=== PATIENT | male | born 1960 | race Caucasian/White ===

== ENCOUNTER 2016-07-13 16:03 | Emergency (ER) | payer OTHER ==
[~2016-07-13] VITALS: Ht 167.6 cm; Wt 89.8 kg
[2016-07-13 16:20] VITALS: BP 147/72; PULSE 84; RESP 16; TEMP 98.8; O2SAT 97
[2016-07-13] MEDS ORDERED: MULT-125 PO (17:12)
[2016-07-13] MEDS ORDERED: ASPI81CH CHEW (17:12)
[2016-07-13] MEDS ORDERED: CANA100T PO (17:12)
[2016-07-13] MEDS ORDERED: LISI10TA PO (17:12)
[2016-07-13] MEDS ORDERED: METF500T PO (17:12)
[2016-07-13] MEDS ORDERED: PREV15CA15 PO (17:12)
[2016-07-13] MEDS ORDERED: MECLIZINE HCL 25 MG TAB PO ONE (17:15)
[2016-07-13] MEDS ORDERED: ONDANSETRON ODT 4 MG TAB PO/SL ONE (17:15)
--- NOTE | 2016-07-13 17:17 | PD ---
HPI Chief Complaint: ENT Complaint Time Seen by Provider: 17:11 Travel History International Travel<30 days: No Contact w/Intl Traveler<30days: No Traveled to known affect area: No History of Present Illness HPI Patient is a 56-year-old male with history of chronic sinus problems, eustachian tube dysfunction, DM, CAD and HTN presenting with left ear discomfort , reduced hearing and vertiginous symptoms with nausea for 1 week. He states that he's had vertigo in the past and this is similar. He denies presyncope or syncope, chest pain, palpitations, shortness of breath. He states that this is worse when he bends over or when he gets up from sitting rapidly. States he has a little unsteady on his feet but denies ataxia or dysarthria. Denies any confusion or weakness or paresthesias in his extremities. Denies any fevers or otorrhea. He has some nausea with the vertigo symptoms but denies vomiting, diarrhea, constipation, abdominal pain. States his PCP put him on oral antibiotics one week ago which patient has finished without improvement. He is also taking an antihistamine and Flonase which has not helped. [facility] Past Medical History Cardiovascular Problems: Yes (htn on meds, [place] x 1) Diabetes: Yes (type 2) Social History Tobacco Use: No Allergies-Medications (Allergen,Severity, Reaction): Coded Allergies: No Known Allergies (Unverified , 07/13/16) Reported Meds & Prescriptions Reported Meds & Active Scripts Active Zofran Odt (Ondansetron Odt) 4 Mg Tab 4 Mg SL Q12HR PRN Meclizine (Meclizine HCl) 25 Mg Tab 25-50 Mg PO BID PRN Reported Centrum Men (Multiple Vitamins-Minerals) 1 Tab Tab 1 Tab PO DAILY Aspirin 81 Mg Chew 81 Mg CHEW DAILY Prevacid (Lansoprazole) 15 Mg Capdr 15 Mg PO DAILY Lisinopril-Hctz 10-12.5 Mg Tab 1 Tab PO DAILY Metformin (Metformin HCl) 500 Mg Tab 500 Mg PO BIDPC With meals Invokana (Canagliflozin) 100 Mg Tab 100 Mg PO DAILY Take before 1st meal of day. Review of Systems Except as stated in HPI: all other systems reviewed are Neg Physical Exam Narrative GENERAL: Well-developed and well-nourished adult male in no acute distress. SKIN: Warm and dry. Good turgor without tenting. HEAD: Normocephalic and atraumatic. EYES: PERRL bilaterally, 5mm. EOMI bilaterally. No injection or icterus present. No proptosis. Lids without edema or erythema. ENT: Bilateral ear canals are non-edematous/non-erythematous without otorrhea. Bilateral TMs are dull and slightly retracted, left greater than right. No evidence of perforation, air-fluid level or infection including erythema. Nasal mucosa erythematous and edematous without discharge, septum intact and midline. Negative bilateral mastoid tenderness. Thao-Hallpike on the left and right reproduces the vertiginous symptoms with nausea without nystagmus. Buccal mucosa pink and moist. Oropharynx free of erythema, tonsillar hypertrophy, masses, swelling, asymmetry and exudates. Uvula midline and airway patent. NECK: Supple, no meningeal signs. Trachea midline, no JVD. No cervical or facial lymphadenopathy. Negative bilateral carotid bruits. CARDIOVASCULAR: Regular rate and rhythm without murmurs, rubs, clicks or gallops. Radial and posterior tibial pulses 2+ bilaterally. No pedal edema. RESPIRATORY: Clear to auscultation bilaterally with symmetrical rise and fall, no distress or use of accessory muscles. GASTROINTESTINAL: Non-tender, non-distended. Normal bowel sounds all 4 quadrants. No masses or organomegaly present. MUSCULOSKELETAL: No gait disturbances. Patient freely moving all four extremities spontaneously. Extremities without clubbing, cyanosis, or edema. No obvious deformities. NEUROLOGIC: CN II-XII grossly intact. Awake and alert. Negative Romberg and pronator drift. Rousseau and accurate finger to nose to finger testing bilaterally. Strength 5/5 bilateral shoulder flexion, shoulder extension, shoulder abduction, shoulder adduction, elbow flexion, elbow extension. Sensation intact and strength 5/5 over radial, median, and ulnar nerve distributions bilaterally.Sensation intact L2-S2 bilaterally. Strength 5/5 in hip flexion, hip extension, knee flexion, knee extension, plantar flexion, dorsiflexion bilaterally. Bilateral biceps, brachioradialis, patellar and Achilles DTRs 2+. Downgoing Babinskis bilaterally. Normal speech. PSYCHIATRIC: Appropriate mood and affect; insight and judgment normal. Data Data Last Documented VS Vital Signs Date Time Temp Pulse Resp B/P Pulse Ox O2 Delivery O2 Flow Rate FiO2 07/13/16 17:45 82 16 131/67 96 1/7/17 16:20 98.8 Orders Meclizine (Antivert) (07/13/16 17:15) Ondansetron Odt (Zofran Odt) (07/13/16 17:15) [facility] Medical Decision Making Medical Screen Exam Complete: Yes Emergency Medical Condition: Yes Differential Diagnosis Vertigo versus eustachian tube dysfunction versus chronic sinusitis versus otitis media versus otitis externa Narrative Course Patient is a 56-year-old male with a history of eustachian tube dysfunction and vertigo presenting with symptoms and physical suggestive of same. He is afebrile nontoxic appearing and has no signs of acute infection including mastoiditis. Alma-Hallpike reproduces symptoms. This patient is a history of CAD pseudoephedrine other decongestants are contraindicated but would likely be of benefit if they were able to be used. I discussed with Dr. Najera who agrees without any other symptoms, the chronicity, and normal neurologic exam no additional workup is indicated. Patient was given meclizine 50 mg and Zofran 4 mg here and a prescription for both. Recommend he follow up with an ENT on Friday and continue using the Flonase in the meantime. Patient to get some relief from the meclizine. I perform the Reynaldo maneuver with the patient for both the right and left side and he did have nystagmus with both, worse with the right. He did feel improved after this as well. Patient given prescription for meclizine and Zofran and recommended home Reynaldo maneuver and follow-up with ENT or PCP on Friday.See discharge paperwork for further instructions. The plan was discussed with the patient who acknowledged their understanding and agreement. Reinforced the follow-up with primary care is critically important. Patient instructed on emergent conditions that should prompt return to ED. Diagnosis Primary Impression: BPPV (benign paroxysmal positional vertigo) Qualified Code: H81.13 - BPPV (benign paroxysmal positional vertigo), bilateral Additional Impression: Eustachian tube dysfunction Qualified Code: H69.83 - Eustachian tube dysfunction, bilateral Patient Instructions: Benign Paroxysmal Positional Vertigo (ED), Eustachian Tube Dysfunction (GEN), General Instructions Additional Instructions: Continue home nasal steroids Recommend nasal irrigation with Neti Pot Take medications as directed Avoid rapid and sudden changes in position or posture Drink lots of fluids and stay well-hydrated Lookup Reynaldo maneuver video and perform at home as needed Follow-up with PCP or ENT on Friday Return to the ED for any acute worsening of symptoms Med/Other Pt SpecificInfo: Prescription(s) given Scripts Ondansetron Odt (Zofran Odt)4 Mg Tab4 Mg SL Q12HR PRN (Nausea/Vomiting) #12 TAB Ref 0 Prov:Amber Najera MD 07/13/16 Meclizine 25 Mg [id number] Mg PO BID PRN (VERTIGO) #15 TAB Ref 0 Prov:Amber Najera MD 07/13/16 Disposition: 01 DISCHARGE HOME Condition: Stable Reji Ybarra III Jul 13, 2016 17:17
[2016-07-13] MEDS ORDERED: MECL-62 PO (17:19)
[2016-07-13] MEDS ORDERED: ZOFR4TAB3 SL (17:19)
[2016-07-13 17:45] VITALS: BP 131/67; PULSE 82; RESP 16; O2SAT 96
== END 2016-07-13 18:28 | disposition home or self-care (01) ==
LOC: PHED 16:03 → PHEFT 18:28
DX: H81.13 Benign paroxysmal vertigo, bilateral (principal); H69.83 Other specified disorders of Eustachian tube, bilateral; I10 Essential (primary) hypertension; E11.8 Type 2 diabetes mellitus with unspecified complications
CPT/HCPCS: 95992

== ENCOUNTER 2016-08-01 20:50 | Emergency (ER) | payer OTHER ==
[~2016-08-01 20:50] MED LIST: ASPI81CH CHEW; CANA100T PO; LISI10TA PO; MECL-62 PO; METF500T PO; MULT-125 PO; PREV15CA15 PO; ZOFR4TAB3 SL
== END 2016-08-01 22:17 | disposition left against medical advice (07) ==
LOC: PHED 20:50
DX: R68.89 Other general symptoms and signs (principal)
CPT/HCPCS: 99281

== ENCOUNTER 2017-01-16 17:37 | Emergency (ER) | payer OTHER ==
[~2017-01-16] VITALS: Ht 167.6 cm; Wt 90.0 kg
[2017-01-16 17:43] VITALS: BP 134/66; PULSE 77; RESP 14; TEMP 98.5; O2SAT 97
[2017-01-16 18:15] VITALS: BP 134/66; PULSE 77; RESP 14; TEMP 98.5; O2SAT 97
--- NOTE | 2017-01-16 18:28 | PD ---
HPI Chief Complaint: Cold / Flu Symptoms Time Seen by Provider: 18:14 Travel History International Travel<30 days: No Contact w/Intl Traveler<30days: No Traveled to known affect area: No History of Present Illness HPI This 56-year-old male says he woke up around 2:00 this morning profuse sweating. He did not have any chest pain or shortness of breath. He felt generalized weakness. 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 He went home and took a cool shower and seemed to feel a little bit better. He had some dry heaves last night. He does have a history of diabetes and hypertension. He does not smoke. When he vomited it was mostly mucus that he brought up. PFSH Past Medical History Hx Anticoagulant Therapy: Yes (BABY ASA DAILY) Cardiovascular Problems: Yes High Cholesterol: Yes Diabetes: Yes Patient Takes Glucophage: No Diminished Hearing: No Hypertension: Yes Tetanus Vaccination: < 5 Years Past Surgical History Other Surgery: Yes (SINUS) Social History Alcohol Use: Yes (OCC) Tobacco Use: No Substance Use: No Allergies-Medications (Allergen,Severity, Reaction): Coded Allergies: No Known Allergies (Unverified , 01/16/17) Reported Meds & Prescriptions Reported Meds & Active Scripts Active Zofran Odt (Ondansetron Odt) 4 Mg Tab 4 Mg SL Q12HR PRN Meclizine (Meclizine HCl) 25 Mg Tab 25-50 Mg PO BID PRN Reported Centrum Men (Multiple Vitamins-Minerals) 1 Tab Tab 1 Tab PO DAILY Aspirin 81 Mg Chew 81 Mg CHEW DAILY Prevacid (Lansoprazole) 15 Mg Capdr 15 Mg PO DAILY Lisinopril-Hctz 10-12.5 Mg Tab 1 Tab PO DAILY Invokana (Canagliflozin) 100 Mg Tab 1,000 Mg PO DAILY Take before 1st meal of day. Review of Systems General / Constitutional: Positive: Chills, No: Fever Eyes: No: Diploplia, Blurred Vision HENT: No: Headaches, Vertigo Cardiovascular: No: Chest Pain or Discomfort, Palpitations Respiratory: No: Cough, Shortness of Breath Gastrointestinal: Positive: Vomiting Genitourinary: No: Frequency Musculoskeletal: Positive: Myalgias, Weakness Skin: No Rash Neurologic: Positive: Weakness Endocrine: No: Heat Intolerance Hematologic/Lymphatic: No: Easy Bruising Physical Exam Narrative GENERAL: Well-developed male SKIN: Focused skin assessment warm/dry. HEAD: Atraumatic. Normocephalic. EYES: Pupils equal and round. No scleral icterus. No injection or drainage. ENT: No nasal bleeding or discharge. Mucous membranes pink and moist. NECK: Trachea midline. No JVD. CARDIOVASCULAR: Regular rate and rhythm. No murmur appreciated. RESPIRATORY: No accessory muscle use. Clear to auscultation. Breath sounds equal bilaterally. GASTROINTESTINAL: Abdomen soft, non-tender, nondistended. Hepatic and splenic margins not palpable. MUSCULOSKELETAL: No obvious deformities. No clubbing. No cyanosis. No edema. NEUROLOGICAL: Awake and alert. No obvious cranial nerve deficits. Motor grossly within normal limits. Normal speech. PSYCHIATRIC: Appropriate mood and affect; insight and judgment normal. Data Data Last Documented VS Vital Signs Date Time Temp Pulse Resp B/P Pulse Ox O2 Delivery O2 Flow Rate FiO2 01/16/17 18:15 98.5 77 14 134/66 97 01/16/17 18:09 Room Air Orders Complete Blood Count With Diff (01/16/17 18:23) Comprehensive Metabolic Panel (01/16/17 18:23) Urinalysis - C+S If Indicated (01/16/17 18:23) Chest, Single Ap (01/16/17 18:23) Sodium Chlor 0.9% 1000 Ml Inj (Ns 1000 M (01/16/17 18:30) Sodium Chlor 0.9% 1000 Ml Inj (Ns 1000 M (01/16/17 19:00) Acetaminophen (Tylenol) (01/16/17 19:30) Labs Laboratory Tests Test 01/16/17 01/16/17 18:30 19:10 White Blood Count 7.0 TH/MM3 Red Blood Count 5.10 MIL/MM3 Hemoglobin 15.1 GM/DL Hematocrit 45.8 % Mean Corpuscular Volume 89.7 FL Mean Corpuscular Hemoglobin 29.7 PG Mean Corpuscular Hemoglobin 33.1 % Concent Red Cell Distribution Width 12.5 % Platelet Count 207 TH/MM3 Mean Platelet Volume 8.8 FL Neutrophils (%) (Auto) 63.7 % Lymphocytes (%) (Auto) 26.3 % Monocytes (%) (Auto) 6.9 % Eosinophils (%) (Auto) 2.6 % Basophils (%) (Auto) 0.5 % Neutrophils # (Auto) 4.5 TH/MM3 Lymphocytes # (Auto) 1.8 TH/MM3 Monocytes # (Auto) 0.5 TH/MM3 Eosinophils # (Auto) 0.2 TH/MM3 Basophils # (Auto) 0.0 TH/MM3 CBC Comment DIFF FINAL Differential Comment Sodium Level 143 MEQ/L Potassium Level 4.0 MEQ/L Chloride Level 106 MEQ/L Carbon Dioxide Level 27.1 MEQ/L Anion Gap 10 MEQ/L Blood Urea Nitrogen 19 MG/DL Creatinine 0.85 MG/DL Estimat Glomerular Filtration 93 ML/MIN Rate Random Glucose 151 MG/DL Calcium Level 8.9 MG/DL Total Bilirubin 0.4 MG/DL Aspartate Amino Transf 18 U/L (AST/SGOT) Alanine Aminotransferase 32 U/L (ALT/SGPT) Alkaline Phosphatase 71 U/L Total Protein 7.2 GM/DL Albumin 3.9 GM/DL Urine Color YELLOW Urine Turbidity CLEAR Urine pH 5.5 Urine Specific [place] 1.027 Urine Protein NEG mg/dL Urine Glucose (UA) NEG mg/dL Urine Ketones NEG mg/dL Urine Occult Blood NEG Urine Nitrite NEG Urine Bilirubin NEG Urine Leukocyte Esterase NEG Urine RBC 0-3 /hpf Urine Squamous Epithelial 0-5 /hpf Cells Microscopic Urinalysis Comment CULT NOT INDICATED MDM Medical Decision Making Medical Screen Exam Complete: Yes Emergency Medical Condition: Yes Medical Record Reviewed: Yes Differential Diagnosis Differential includes pneumonia, UTI, heat-related illness, dehydration Narrative Course Patient given IV fluids. His white count is normal. Chest x-ray shows small area of interstitial process. This could be related to or inhalation or a small infiltrate. Covered with antibiotics and will be released Diagnosis Primary Impression: Pneumonia Qualified Code: J18.9 - Pneumonia of left lung due to infectious organism, unspecified part of lung Scripts Amoxicillin 500 Mg Cys738 Mg PO TID #30 TAB Ref 0 Prov:Tu Bowers MD 01/16/17 Disposition: 01 DISCHARGE HOME Condition: Stable Tu Bowers MD Jan 16, 2017 18:28
[2017-01-16] MEDS ORDERED: SODIUM CHLOR 0.9% 1000 ML INJ 1,000 ML IV ONE ×2 (18:30→19:00)
[2017-01-16 18:34] LABS: AUTOMATED NEUTROPHIL # 4.5 TH/MM3 (1.8-7.7); BASOPHIL % 0.5 % (0.0-2.0); EOSINOPHIL # 0.2 TH/MM3 (0-0.4); EOSINOPHIL % 2.6 % (0.0-4.0); HEMATOCRIT 45.8 % (39.0-51.0); HEMO FLAGS DIFF FINAL; LYMPH % 26.3 % (9.0-44.0); LYMPHOCYTE # 1.8 TH/MM3 (1.0-4.8); MEAN CELL VOLUME 89.7 FL (80.0-100.0); MEAN CORPUSCULAR HEMOGLOBIN 29.7 PG (27.0-34.0); MEAN CORPUSCULAR HGB CONC 33.1 % (32.0-36.0); MONO % 6.9 % (0.0-8.0); NEUT % 63.7 % (16.0-70.0); PLATELET COUNT 207 TH/MM3 (150-450); RED CELL DISTRIBUTION WIDTH 12.5 % (11.6-17.2)
[2017-01-16 18:45] LABS: CHLORIDE 106 MEQ/L (98-107); SODIUM (NA) 143 MEQ/L (136-145)
--- NOTE | 2017-01-16 18:47 | RADRPT ---
EXAM DATE/TIME: 01/16/2017 18:36 [facility] COMPARISON: No previous studies available for comparison. INDICATIONS : Shortness of breath and cramping in extremities. MEDICAL HISTORY : Hypertension. Heart attack. SURGICAL HISTORY : None. ENCOUNTER: Initial ACUITY: 2 days PAIN SCORE: 0/10 LOCATION: Bilateral chest FINDINGS: Heart and mediastinum are unremarkable for technique. There is prominence of the perivascular marking s with crowding of the bronchovascular markings may be due to expiratory state of this radiograph, ho wever slight interstitial process is not excluded. CONCLUSION: There is prominence of the perivascular markings with crowding of the bronchovascular markings may be due to expiratory state of this radiograph, however slight interstitial process is not excluded. Spencer Beck MD on January 16, 2017 at 18:45 Board Certified Radiologist. This report was verified electronically.
[2017-01-16 18:48] LABS: ANION GAP 10 MEQ/L (5-15); BICARBONATE 27.1 MEQ/L (21.0-32.0); BLOOD UREA NITROGEN 19 MG/DL (7-18)
[2017-01-16 18:51] LABS: ALT (GPT) 32 U/L (12-78); AST (GOT) 18 U/L (15-37); GLOMERULAR FILTRATION RATE 93 ML/MIN (>89)
[2017-01-16 18:52] LABS: TOTAL BILIRUBIN ADULT 0.4 MG/DL (0.2-1.0)
[2017-01-16 18:54] LABS: ALKALINE PHOSPHATASE 71 U/L (45-117)
[2017-01-16 19:22] LABS: BLOOD, URINE NEG (NEG); GLUCOSE,URINE NEG (NEG); KETONE, URINE NEG (NEG); NITRITE,URINE NEG (NEG); PH, URINE 5.5 (5.0-8.5)
[2017-01-16 19:30] LABS: URINE COLOR YELLOW (YELLW/STRAW)
[2017-01-16] MEDS ORDERED: ACETAMINOPHEN 325 MG TAB PO ONE (19:30)
[2017-01-16 19:31] LABS: COMMENT (UR) CULT NOT INDICATED; CULTURE IF INDICATED CULT NOT INDICATED; RBC, URINE 0-3 /hpf (0-3); SQUAMOUS EPITHELIAL CELL URINE 0-5 /hpf (0-5)
[2017-01-16] MEDS ORDERED: AMOX500T PO (19:36)
[2017-01-16] MEDS ORDERED: AMOXICILLIN (TRIHYDRATE) 500 MG CAP PO ONE (19:45)
[2017-01-16 19:59] VITALS: BP 136/72; PULSE 75; RESP 16; O2SAT 98
== END 2017-01-16 20:04 | disposition home or self-care (01) ==
LOC: PHED 17:37
DX: J18.9 Pneumonia, unspecified organism (principal)
CPT/HCPCS: 71010; 80053; 81001; 85025; 96360; 99284; J7030

== ENCOUNTER 2017-01-30 15:46 | Observation (INO) | payer OTHER ==
[~2017-01-30] VITALS: Ht 167.6 cm; Wt 90.6 kg
[~2017-01-30 15:46] MED LIST changes: +AMOX500T PO; -METF500T PO
[2017-01-30 15:47] VITALS: BP 147/69; PULSE 86; RESP 16; TEMP 98.4; O2SAT 96
[2017-01-30 16:08] VITALS: O2SAT 95
[2017-01-30] MEDS ORDERED: SODIUM CHLORIDE 0.9% FLUSH 10 ML FLUSH IVF PRN (16:15)
[2017-01-30] MEDS ORDERED: RESP: ALBUTEROL 2.5 MG/IPRATROPIUM 0.5 MG NEB (SCH) INH ONE (16:15)
--- NOTE | 2017-01-30 16:17 | PD ---
HPI Chief Complaint: Respiratory Symptoms Time Seen by Provider: 16:04 Travel History International Travel<30 days: No Contact w/Intl Traveler<30days: No Traveled to known affect area: No History of Present Illness HPI 56-year-old male with history of visit here on January 16, 2017 with diagnosis of pneumonia and dehydration at that time. Patient was treated on an outpatient basis with amoxicillin, which was then switched by his doctor to Levaquin. Patient states he finished Levaquin yesterday but continues to have exertional dyspnea and cough especially if he gets out in the heat. The patient is a type II diabetic on Invomet. Patient states he does cough up clear mucus. He states he has a burning in his chest with exertion. Patient denies increased reflux for which he takes Prevacid. Patient denies any recent fevers or chills. He has no nausea or vomiting. He does not wake up short of breath at night, but he does have a history of sleep apnea for which he uses CPAP. Patient states he had a sestamibi stress test 4 years prior to this visit. Patient has no history of COPD or asthma in the past. Is a nonsmoker. Patient states that he feels worse than he did a week ago with his symptoms. He has no known drug allergies. PFSH Past Medical History Hx Anticoagulant Therapy: Yes (BABY ASA DAILY) Cardiovascular Problems: Yes (MT, HTN, CHOL) High Cholesterol: Yes Diabetes: Yes Diminished Hearing: No Hypertension: Yes Past Surgical History Other Surgery: Yes (SINUS) Social History Alcohol Use: Yes (OCC) Tobacco Use: No Substance Use: No Allergies-Medications (Allergen,Severity, Reaction): Coded Allergies: No Known Allergies (Unverified , 01/30/17) Reported Meds & Prescriptions Reported Meds & Active Scripts Active Meclizine (Meclizine HCl) 25 Mg Tab 25-50 Mg PO BID PRN Reported Aspirin 81 Mg Chew 81 Mg CHEW DAILY Prevacid (Lansoprazole) 15 Mg Capdr 15 Mg PO DAILY Lisinopril-Hctz 10-12.5 Mg Tab 1 Tab PO DAILY Invokana (Canagliflozin) 100 Mg Tab 2,000 Mg PO DAILY Take before 1st meal of day. Review of Systems Except as stated in HPI: all other systems reviewed are Neg General / Constitutional: No: Fever, Chills Eyes: No: Visual changes HENT: No: Headaches, Lightheadedness, Sore Throat, Rhinitis, Rhinorrhea, Congestion, Nosebleed, Neck Stiffness, Neck Pain, Ear Discharge, Earache Cardiovascular: Positive: Dyspnea on exertion, No: Chest Pain or Discomfort Respiratory: Positive: Cough, Shortness of Breath, No: Wheezing, Sneezing, Orthopnea, Hemoptysis, Pleuritic Pain Gastrointestinal: No: Nausea, Vomiting, Diarrhea, Abdominal Pain Genitourinary: No: Dysuria Musculoskeletal: No: Pain Skin: No Rash Neurologic: No: Weakness Psychiatric: No: Depression Endocrine: No: Polydipsia Hematologic/Lymphatic: No: Easy Bruising Physical Exam Narrative GENERAL: Patient appears in no acute distress. SKIN: Warm and dry. Normal color. Normal turgor. HEAD: Atraumatic. Normocephalic. EYES: Pupils equal and round. No scleral icterus. No injection or drainage. ENT: No nasal bleeding or discharge. Mucous membranes pink and moist. TMs are clear bilaterallytenderness to palpation. Pharynx is clear. Airway is patent. NECK: Trachea midline. No JVD. Supple and nontender. CARDIOVASCULAR: Regular rate and rhythm. No murmurs appreciated this time. RESPIRATORY: No accessory muscle use. Clear to auscultation. No wheezes rales or rhonchi. Breath sounds equal bilaterally. GASTROINTESTINAL: Abdomen soft, non-tender, nondistended. Hepatic and splenic margins not palpable. MUSCULOSKELETAL: Extremities without clubbing, cyanosis, or edema. No obvious deformities. NEUROLOGICAL: Awake and alert. No obvious cranial nerve deficits. Motor grossly within normal limits. Five out of 5 muscle strength in the arms and legs. Normal speech. PSYCHIATRIC: Appropriate mood and affect; insight and judgment normal. Data Data Last Documented VS Vital Signs Date Time Temp Pulse Resp B/P Pulse Ox O2 Delivery O2 Flow Rate FiO2 01/30/17 17:45 72 18 127/72 96 Room Air 01/30/17 15:47 98.4 Orders Complete Blood Count With Diff (01/30/17 16:01) Comprehensive Metabolic Panel (01/30/17 16:01) B-Type Natriuretic Peptide (01/30/17 16:01) Act Partial Throm Time (Ptt) (01/30/17 16:01) Prothrombin Time / Inr (Pt) (01/30/17 16:01) Ckmb (Isoenzyme) Profile (01/30/17 16:01) Troponin I (01/30/17 16:01) Urinalysis - C+S If Indicated (01/30/17 16:01) Iv Access Insert/Monitor (01/30/17 16:01) Electrocardiogram (01/30/17 16:01) Ecg Monitoring (01/30/17 16:01) Oximetry (01/30/17 16:01) Oxygen Administration (01/30/17 16:01) Chest, Pa & Lat (01/30/17 16:01) Sodium Chloride 0.9% Flush (Ns Flush) (01/30/17 16:15) Albuterol-Ipratropium Neb (Duoneb Neb) (01/30/17 16:15) Resp Peak Flow Rate (01/30/17 ) Acetaminophen (Tylenol) (01/30/17 16:30) CKMB (01/30/17 16:12) CKMB% (01/30/17 16:12) Admit Order (Ed Use Only) (01/30/17 18:01) Labs Laboratory Tests Test 01/30/17 01/30/17 16:12 16:25 White Blood Count 5.8 TH/MM3 Red Blood Count 5.26 MIL/MM3 Hemoglobin 16.1 GM/DL Hematocrit 48.4 % Mean Corpuscular Volume 91.9 FL Mean Corpuscular Hemoglobin 30.6 PG Mean Corpuscular Hemoglobin 33.3 % Concent Red Cell Distribution Width 13.4 % Platelet Count 196 TH/MM3 Mean Platelet Volume 9.2 FL Neutrophils (%) (Auto) 66.6 % Lymphocytes (%) (Auto) 19.1 % Monocytes (%) (Auto) 11.3 % Eosinophils (%) (Auto) 2.4 % Basophils (%) (Auto) 0.6 % Neutrophils # (Auto) 3.9 TH/MM3 Lymphocytes # (Auto) 1.1 TH/MM3 Monocytes # (Auto) 0.7 TH/MM3 Eosinophils # (Auto) 0.1 TH/MM3 Basophils # (Auto) 0.0 TH/MM3 CBC Comment DIFF FINAL Differential Comment Prothrombin Time 11.0 SEC Prothromb Time International 1.0 RATIO Ratio Activated Partial 24.9 SEC Thromboplast Time Sodium Level 139 MEQ/L Potassium Level 4.6 MEQ/L Chloride Level 104 MEQ/L Carbon Dioxide Level 26.4 MEQ/L Anion Gap 9 MEQ/L Blood Urea Nitrogen 24 MG/DL Creatinine 1.00 MG/DL Estimat Glomerular Filtration 77 ML/MIN Rate Random Glucose 282 MG/DL Calcium Level 9.3 MG/DL Total Bilirubin 0.6 MG/DL Aspartate Amino Transf 21 U/L (AST/SGOT) Alanine Aminotransferase 33 U/L (ALT/SGPT) Alkaline Phosphatase 84 U/L Total Creatine Kinase 106 U/L Creatine Kinase MB 2.2 NG/ML Troponin I LESS THAN 0.02 NG/ML B-Type Natriuretic Peptide 13 PG/ML Total Protein 7.8 GM/DL Albumin 4.3 GM/DL Urine Color STRAW Urine Turbidity CLEAR Urine pH 5.0 Urine Specific [place] 1.030 Urine Protein NEG mg/dL Urine Glucose (UA) 1000 OR GREATER mg/dL Urine Ketones NEG mg/dL Urine Occult Blood NEG Urine Nitrite NEG Urine Bilirubin NEG Urine Leukocyte Esterase NEG Urine Squamous Epithelial 0-5 /hpf Cells Microscopic Urinalysis Comment CULT NOT INDICATED MDM Medical Decision Making Medical Screen Exam Complete: Yes Emergency Medical Condition: Yes Medical Record Reviewed: Yes Differential Diagnosis Dyspnea with exertion. COPD. Asthma. Pneumonia. Cardiac syndrome. CHF. Electrolyte imbalance. Dehydration. Narrative Course Patient appears medically stable at time of exam. EKG is ordered and shows a normal sinus rhythm without significant ST-T changes. Labs ordered including CBC, CMP, urinalysis, cardiac panel and proBNP. Chest x-ray PA and lateral are ordered. Duo neb nebulizer is ordered with pre-and post peak flows ordered as well. Peak flows approximate 330 L/m, and did not change with DuoNeb. Patient symptoms did not change with DuoNeb. CBC is unremarkable. CMP shows negative troponin with less than 0.02, and proBNP of 16. Electrolytes are normal, but sugar is noted to be elevated at 282. Urinalysis shows greater than 1000 glucose but no ketones. Chest x-ray shows no acute obvious findings. Poor inspiration is noted. The patient was discussed with Dr. Duncan, who feels that with the patient's history of exertional dyspnea, chest discomfort with exertion, and diabetes, he warrants admission for chest pain center rule out. 1745 hrs. call was placed to the chest pain center physician to discuss the patient. Diagnosis Primary Impression: Exertional dyspnea Additional Impression: Type 2 diabetes mellitus Qualified Code: E11.9 - Type 2 diabetes mellitus without complication, without long-term current use of insulin Admitting Information Admitting Physician Requests: Observation Condition: Stable Rick Chauhan Jan 30, 2017 16:17
[2017-01-30 16:23] LABS: AUTOMATED NEUTROPHIL # 3.9 TH/MM3 (1.8-7.7); BASOPHIL % 0.6 % (0.0-2.0); EOSINOPHIL # 0.1 TH/MM3 (0-0.4); EOSINOPHIL % 2.4 % (0.0-4.0); HEMATOCRIT 48.4 % (39.0-51.0); HEMO FLAGS DIFF FINAL; LYMPH % 19.1 % (9.0-44.0); LYMPHOCYTE # 1.1 TH/MM3 (1.0-4.8); MEAN CELL VOLUME 91.9 FL (80.0-100.0); MEAN CORPUSCULAR HEMOGLOBIN 30.6 PG (27.0-34.0); MEAN CORPUSCULAR HGB CONC 33.3 % (32.0-36.0); MONO % 11.3 % (0.0-8.0); NEUT % 66.6 % (16.0-70.0); PLATELET COUNT 196 TH/MM3 (150-450); RED BLOOD COUNT 5.26 MIL/MM3 (4.50-5.90); RED CELL DISTRIBUTION WIDTH 13.4 % (11.6-17.2); WHITE BLOOD COUNT 5.8 TH/MM3 (4.0-11.0)
[2017-01-30] MEDS ORDERED: ACETAMINOPHEN 500 MG CPLT PO ONE (16:30)
[2017-01-30 16:31] LABS: CHLORIDE 104 MEQ/L (98-107); POTASSIUM 4.6 MEQ/L (3.5-5.1); SODIUM (NA) 139 MEQ/L (136-145)
[2017-01-30 16:35] LABS: ANION GAP 9 MEQ/L (5-15); BICARBONATE 26.4 MEQ/L (21.0-32.0); BLOOD UREA NITROGEN 24 MG/DL (7-18)
[2017-01-30 16:36] LABS: APTT (PATIENT) 24.9 SEC (24.3-30.1)
[2017-01-30 16:37] VITALS: BP 124/75; PULSE 92; RESP 20; O2SAT 95
[2017-01-30 16:37] LABS: BLOOD, URINE NEG (NEG); KETONE, URINE NEG (NEG); NITRITE,URINE NEG (NEG)
[2017-01-30 16:38] LABS: GLUCOSE,URINE 1000 OR GREATER mg/dL (NEG)
[2017-01-30 16:38] LABS: ALT (GPT) 33 U/L (12-78); AST (GOT) 21 U/L (15-37); GLOMERULAR FILTRATION RATE 77 ML/MIN (>89)
[2017-01-30 16:39] LABS: TOTAL BILIRUBIN ADULT 0.6 MG/DL (0.2-1.0)
[2017-01-30 16:40] LABS: CREATINE KINASE 106 U/L (39-308)
[2017-01-30 16:41] LABS: ALKALINE PHOSPHATASE 84 U/L (45-117)
[2017-01-30 16:42] LABS: COMMENT (UR) CULT NOT INDICATED; CULTURE IF INDICATED CULT NOT INDICATED; SQUAMOUS EPITHELIAL CELL URINE 0-5 /hpf (0-5); URINE COLOR STRAW (YELLW/STRAW)
[2017-01-30 16:53] LABS: CKMB 2.2 NG/ML (0.5-3.6)
[2017-01-30 17:45] VITALS: BP 127/72; PULSE 72; RESP 18; O2SAT 96
--- NOTE | 2017-01-30 17:52 | RADRPT ---
EXAM DATE/TIME: 01/30/2017 16:31 [facility] COMPARISON: No previous studies available for comparison. INDICATIONS : Chest pain and shortness of breath. MEDICAL HISTORY : Hypertension. Diabetes mellitus type II. SURGICAL HISTORY : None. ENCOUNTER: Initial ACUITY: 1 day PAIN SCORE: 5/10 LOCATION: Bilateral chest FINDINGS: There is linear atelectasis in the right lower and anterior lung. Left lung clear. No effusion. Heart size normal. Elevated right hemidiaphragm. No pneumothorax. CONCLUSION: 1. This is a scarring [place]. No focal lesion or effusion. Right hemidiaphragm elevated. Gaudencio Rahman MD on January 30, 2017 at 17:49 Board Certified Radiologist. This report was verified electronically.
[2017-01-30] MEDS ORDERED: SODIUM CHLORIDE 0.9% FLUSH 10 ML FLUSH IV FLUSH PRN (18:00)
[2017-01-30] MEDS ORDERED: GLUCAGON 1 MG/ML VIAL OTHER PRN (18:00)
[2017-01-30] MEDS ORDERED: DEXTROSE 50% IN WATER 50 ML VIAL(D50) IV PRN (18:00)
[2017-01-30] MEDS ORDERED: NITROGLYCERIN 0.4 MG SL 25 TABS/BTL SL PRN (18:00)
[2017-01-30] MEDS ORDERED: CANA100T PO (18:32)
--- NOTE | 2017-01-30 18:43 | HHI.HP ---
HPI Primary Care Physician Skinny Steen, DO Admission Diagnosis Exertional Dyspnea Diagnoses: Chief Complaint: SOB with exertion History of Present Illness 56 year old male with exertional Dyspnea for 2 weeks. Aggravated by exertion, relieved with rest. Saw his PCP for this and was given amoxicillin and then a course of levaquinfor bronchitis without improvement. Denies CP,palps, nausea. He Has diabetes and HTN which are controlled on meds per patient (random BG high here). His family history is positive for premature cardiac disease and he is very worried about cardiac disease. He had a pre op ST 4 years ago which was normal per his report. The EKG on my review and the CXR on my review are unremarkable. Patient to be observed in the [facility]. Review of Systems Constitutional: DENIES: Diaphoretic episodes, Fatigue, Fever, Weight gain, Weight loss, Chills, Dizziness, Change in appetite, Night Sweats Endocrine: DENIES: Heat/cold intolerance, Polydipsia, Polyuria, Polyphagia Eyes: DENIES: Blurred vision, Diplopia, Eye inflammation, Eye pain, Vision loss , Photosensitivity, Double Vision Ears, nose, mouth, throat: DENIES: Tinnitus, Hearing loss, Vertigo, Nasal discharge, Oral lesions, Throat pain, Hoarseness, Ear Pain, Running Nose, Epistaxis, Sinus Pain, Toothache, Odynophagia Respiratory: DENIES: Apneas, Cough, Snoring, Wheezing, Hemoptysis, Sputum production, Shortness of breath Cardiovascular: COMPLAINS OF: Dyspnea on Exertion, DENIES: Chest pain, Palpitations, Syncope, PND, Lower Extremity Edema, Orthopnea, Claudication Gastrointestinal: DENIES: Abdominal pain, Black stools, Bloody stools, Constipation, Diarrhea, Nausea, Vomiting, Difficulty Swallowing, Anorexia Genitourinary: DENIES: Sexual dysfunction, Urinary frequency, Urinary incontinence, Urgency, Hematuria, Dysuria, Nocturia, Penile Discharge, Testicular Pain, Testicular Swelling Musculoskeletal: DENIES: Joint pain, Muscle aches, Stiffness, Joint Swelling, Back pain, Neck pain Integumentary: DENIES: Abnormal pigmentation, Nail changes, Pruritus, Rash Hematologic/lymphatic: DENIES: Bruising, Lymphadenopathy Immunologic/allergic: DENIES: Eczema, Urticaria Neurologic: DENIES: Abnormal gait, Headache, Localized weakness, Paresthesias, Seizures, Speech Problems, Tremor, Poor Balance Psychiatric: DENIES: Anxiety, Confusion, Mood changes, Depression, Hallucinations, Agitation, Suicidal Ideation, Homicidal Ideation, Delusions Past Family Social History Past Medical History DM2 HTN GERD Past Surgical History Sinus Reported Medications Recently started INVOMET Allergies: Coded Allergies: No Known Allergies (Unverified , 01/30/17) Active Ordered Medications Reviewed in the EMR Family History F at 66 crom CAD, Brother had CAD/ Cabg in his 50's mother for lung CA Social History No Tobacco No Etoh Physical Exam Vital Signs Vital Signs Date Time Temp Pulse Resp B/P Pulse Ox O2 Delivery O2 Flow Rate FiO2 01/30/17 17:45 72 18 127/72 96 Room Air 01/30/17 16:37 92 20 124/75 95 01/30/17 16:08 95 Room Air 01/30/17 16:08 89 18 Room Air 01/30/17 16:08 95 Room Air 01/30/17 15:47 98.4 86 16 147/69 96 Physical Exam GENERAL: This is a well-nourished, well-developed patient, in no apparent distress. SKIN: No rashes, ecchymoses or lesions. Cool and dry. HEAD: Atraumatic. Normocephalic. No temporal or scalp tenderness. EYES: Pupils equal round and reactive. Extraocular motions intact. No scleral icterus. No injection or drainage. ENT: Nose without bleeding, purulent drainage or septal hematoma. Throat without erythema, tonsillar hypertrophy or exudate. Uvula midline. Airway patent. NECK: Trachea midline. No JVD or lymphadenopathy. Supple, nontender, no meningeal signs. CARDIOVASCULAR: Regular rate and rhythm without murmurs, gallops, or rubs. RESPIRATORY: Clear to auscultation. Breath sounds equal bilaterally. No wheezes , rales, or rhonchi. GASTROINTESTINAL: Abdomen soft, non-tender, nondistended. No hepato-splenomegaly , or palpable masses. No guarding. MUSCULOSKELETAL: Extremities without clubbing, cyanosis, or edema. No joint tenderness, effusion, or edema noted. No calf tenderness. Negative Homans sign bilaterally. NEUROLOGICAL: Awake and alert. Cranial nerves II through XII intact. Motor and sensory grossly within normal limits. Five out of 5 muscle strength in all muscle groups. Normal speech. Laboratory Laboratory Tests Test 01/30/17 01/30/17 16:12 16:25 White Blood Count 5.8 Red Blood Count 5.26 Hemoglobin 16.1 Hematocrit 48.4 Mean Corpuscular Volume 91.9 Mean Corpuscular Hemoglobin 30.6 Mean Corpuscular Hemoglobin 33.3 Concent Red Cell Distribution Width 13.4 Platelet Count 196 Mean Platelet Volume 9.2 Neutrophils (%) (Auto) 66.6 Lymphocytes (%) (Auto) 19.1 Monocytes (%) (Auto) 11.3 Eosinophils (%) (Auto) 2.4 Basophils (%) (Auto) 0.6 Neutrophils # (Auto) 3.9 Lymphocytes # (Auto) 1.1 Monocytes # (Auto) 0.7 Eosinophils # (Auto) 0.1 Basophils # (Auto) 0.0 CBC Comment DIFF FINAL Differential Comment Prothrombin Time 11.0 Prothromb Time International 1.0 Ratio Activated Partial 24.9 Thromboplast Time Sodium Level 139 Potassium Level 4.6 Chloride Level 104 Carbon Dioxide Level 26.4 Anion Gap 9 Blood Urea Nitrogen 24 Creatinine 1.00 Estimat Glomerular Filtration 77 Rate Random Glucose 282 Calcium Level 9.3 Total Bilirubin 0.6 Aspartate Amino Transf 21 (AST/SGOT) Alanine Aminotransferase 33 (ALT/SGPT) Alkaline Phosphatase 84 Total Creatine Kinase 106 Creatine Kinase MB 2.2 Troponin I LESS THAN 0.02 B-Type Natriuretic Peptide 13 Total Protein 7.8 Albumin 4.3 Urine Color STRAW Urine Turbidity CLEAR Urine pH 5.0 Urine Specific [place] 1.030 Urine Protein NEG Urine Glucose (UA) 1000 OR GREATER Urine Ketones NEG Urine Occult Blood NEG Urine Nitrite NEG Urine Bilirubin NEG Urine Leukocyte Esterase NEG Urine Squamous Epithelial 0-5 Cells Microscopic Urinalysis Comment CULT NOT INDICATED Result Diagram: 01/30/17 1612 01/30/17 1612 Imaging Last Impressions Chest X-Ray 01/30/17 1601 Signed Impressions: Service Date/Time: January 16:31 - CONCLUSION: 1. This is a scarring [place]. No focal lesion or effusion. Right hemidiaphragm elevated. Gaudencio Rahman MD Assessment and Plan Problem List: (1) Exertional dyspnea ICD Code: R06.09 Status: Acute Plan: May be anginal equivalent Serial trops, telemetry St in am Risk factors: famhx of premature CAD, DM, HTN Morphine, ASA, Nitro, BB, LMWH as needed (2) Type 2 diabetes mellitus ICD Code: E11.9 Status: Acute Plan: Hold metformin SSI, Code Status full code Discussed Condition With patient, ER PA Problem Qualifiers (1) Type 2 diabetes mellitus: Qualified Code: E11.9 - Type 2 diabetes mellitus without complication, without long-term current use of insulin Cheryl Luke MD Jan 30, 2017 18:43
[2017-01-30 19:30] LABS: CREATINE KINASE 90 U/L (39-308)
[2017-01-30 20:00] VITALS: BP 124/71; PULSE 83; RESP 19; TEMP 97.5; O2SAT 96
[2017-01-30] MEDS ORDERED: ENOXAPARIN SODIUM 40 MG/0.4 ML SYRINGE SQ SCH (20:00)
[2017-01-30] MEDS: SODIUM CHLORIDE 0.9% FLUSH 10 ML FLUSH IV FLUSH SCH (21:00)
[2017-01-30] MEDS: INSULIN ASPART SUPPLEMENTAL SCALE SQ SCH (21:28)
--- NOTE | 2017-01-30 21:36 | EKG ---
Date Performed: 01/30/2017 Time Performed: 19:04:51 PTAGE: 56 years EKG: Baseline artifact present Sinus rhythm Cannot rule out Inferior myocardial infarction No significant change from prior electrocardiogram. PREVIOUS TRACING : 01/30/2017 16.12 DOCTOR: Mike Perdue Interpretating Date/Time 01/30/2017 21:35:54
--- NOTE | 2017-01-30 21:43 | EKG ---
Date Performed: 01/30/2017 Time Performed: 16:12:57 PTAGE: 56 years EKG: Sinus rhythm probable NORMAL ECG Cannot rule out Inferior myocardial infarction NO PREVIOUS TRACING DOCTOR: Mike Perdue Interpretating Date/Time 01/30/2017 21:41:48
[2017-01-30 22:34] LABS: CREATINE KINASE 80 U/L (39-308)
[2017-01-30 23:07] VITALS: O2SAT 93
[2017-01-31] VITALS: BP 117/70; PULSE 74; RESP 18; TEMP 97.2; O2SAT 95
[2017-01-31 04:00] VITALS: BP 118/77; PULSE 70; RESP 17; TEMP 96.3; O2SAT 96
--- NOTE | 2017-01-31 05:04 | EKG ---
Date Performed: 01/30/2017 Time Performed: 21:54:56 PTAGE: 56 years EKG: Sinus rhythm NONSPECIFIC ST & T-WAVE ABNORMALITY Cannot rule out Inferior myocardial infarction No significant ch carmella from prior electrocardiogram. PREVIOUS TRACING : 01/30/2017 19.04 DOCTOR: Mike Perdue Interpretating Date/Time 01/31/2017 05:02:50
[2017-01-31] MEDS: INSULIN ASPART SUPPLEMENTAL SCALE SQ SCH ×2 (06:27→11:00)
[2017-01-31 08:00] VITALS: BP 125/87; PULSE 70; RESP 18; TEMP 97.5; O2SAT 93; O2SAT 97
--- NOTE | 2017-01-31 08:57 | HHI.PR ---
Subjective Remarks Patient seen today in follow-up for dyspnea on exertion. No patel chest plate overnight. No new events. Cardiac eval still shows normal EKG with negative cardiac enzymes. Patient now reports that last year he has some shortness of breath which was treated at outside hospital was told he had some aortic valve "vegetations ". He was given antibiotics for "a week". Objective Vitals Vital Signs Date Time Temp Pulse Resp B/P Pulse Ox O2 Delivery O2 Flow Rate FiO2 01/31/17 08:00 93 21 01/31/17 08:00 97.5 70 18 125/87 97 01/31/17 04:00 96.3 70 17 118/77 96 01/31/17 00:00 97.2 74 18 117/70 95 01/30/17 23:07 93 21 01/30/17 20:00 97.5 83 19 124/71 96 01/30/17 17:45 72 18 127/72 96 Room Air 01/30/17 16:37 92 20 124/75 95 01/30/17 16:08 95 Room Air 01/30/17 16:08 89 18 Room Air 01/30/17 16:08 95 Room Air 01/30/17 15:47 98.4 86 16 147/69 96 I/O 01/30/17 01/30/17 01/30/17 01/31/17 01/31/17 01/31/17 07:00 15:00 23:00 07:00 15:00 23:00 Intake Total 420 ml 0 ml Balance 420 ml 0 ml Intake Oral 420 ml 0 ml # Voids 2 1 Result Diagram: 01/30/17 1612 01/30/17 1612 Objective Remarks GENERAL: This is a well-nourished, well-developed patient, in no apparent distress. CARDIOVASCULAR: Regular rate and rhythm without murmurs, gallops, or rubs. RESPIRATORY: Clear to auscultation. Breath sounds equal bilaterally. No wheezes , rales, or rhonchi. GASTROINTESTINAL: Abdomen soft, non-tender, nondistended. Normal active bowel sounds MUSCULOSKELETAL: Extremities without clubbing, cyanosis, or edema. NEURO: Alert & Oriented x4 to person, place, time, situation. Moves all ext x4 A/P Problem List: (1) Exertional dyspnea ICD Code: R06.09 Status: Acute Plan: May be anginal equivalent Serial trops are negative, telemetry Pharmacological stress test Risk factors: famhx of premature CAD, DM, HTN Morphine, ASA, Nitro, BB, LMWH as needed Echo (2) Type 2 diabetes mellitus ICD Code: E11.9 Status: Acute Plan: Hold metformin SSI, Discharge Planning pending ST/Echo Problem Qualifiers (1) Type 2 diabetes mellitus: Qualified Code: E11.9 - Type 2 diabetes mellitus without complication, without long-term current use of insulin Cheryl Luke MD Jan 31, 2017 08:57
[2017-01-31] MEDS ORDERED: PANTOPRAZOLE SOD 20 MG DELAYED RELEASE TAB PO SCH (09:00)
[2017-01-31] MEDS ORDERED: LISINOPRIL 10 MG TAB PO SCH (09:00)
[2017-01-31] MEDS ORDERED: HYDROCHLOROTHIAZIDE 25 MG TAB PO SCH (09:00)
[2017-01-31] MEDS ORDERED: CANAGLIFLOZIN PO SCH (09:00)
[2017-01-31] MEDS ORDERED: NON-FORMULARY DRUG (Lisinopril-Hctz 1 TAB) PO SCH (09:00)
[2017-01-31] MEDS ORDERED: REGADENOSON INJ 0.4 MG/5 ML SYR IV ONE (10:00)
[2017-01-31 12:00] VITALS: BP 134/78; PULSE 76; RESP 18; TEMP 97.4; O2SAT 96
[2017-01-31] MEDS: SODIUM CHLORIDE 0.9% FLUSH 10 ML FLUSH IV FLUSH SCH (12:48)
--- NOTE | 2017-01-31 13:53 | RADRPT ---
EXAM DATE/TIME: 01/31/2017 10:00 [facility] COMPARISON: CHEST PA & LAT, January 30, 2017, 16:31. INDICATIONS : Chest burning upon exertion. Continued cough and dyspnea upon recovering from pneumonia. Unable to wa lk on treadmill. DOSE: 27.3 mCi Tc99m Myoview at stress. 8.7 mCi Tc99m Myoview at rest. 0.4 mg Lexiscan STRESS SYMPTOMS: Dyspnea, headache and facial flush. EJECTION FRACTION: 54% MEDICAL HISTORY : Myocardial infarction. Diabetes mellitus type 2. Hypercholesterolemia. Hypertension. SURGICAL HISTORY : Sinus. ENCOUNTER: Initial ACUITY: 1 day PAIN SCALE: 2/10 LOCATION: chest TECHNIQUE: The patient underwent pharmacologic stress with infusion of prescribed dose. Continuous ECG tracing was monitored during stress. Gated SPECT imaging was performed after stress and conventional SPECT i maging was performed at rest. The examination was performed on a SPECT/CT scanner, both attenuation and non-corrected datasets were reviewed. FINDINGS: DISTRIBUTION: The maximum perfused segment at stress is in the anterolateral wall. PERFUSION STUDY: The pattern of perfusion at stress that appears intact with some degree of diaphragmatic attenuation involving the posterior basal wall. GATED STUDY: There is intact wall motion and thickening without hypokinetic or dyskinetic segments. CONCLUSION: No appreciable ischemia. RISK CATEGORY: Low (<1% Annual Mortality Rate) Spencer Beck MD on January 31, 2017 at 13:49 Board Certified Radiologist. This report was verified electronically.
--- NOTE | 2017-01-31 14:33 | HHI.DCPOC ---
Discharge Care Plan Diagnosis: (1) Exertional dyspnea Goals to Promote Your Health * To prevent worsening of your condition and complications * To maintain your health at the optimal level Directions to Meet Your Goals Take your medications as prescribed Follow your dietary instruction Follow activity as directed Keep your appointments as scheduled Take your immunizations and boosters as scheduled If your symptoms worsen call your PCP, if no PCP go to Urgent Care Center or Emergency Room Smoking is Dangerous to Your Health. Avoid second hand smoke Call the 24-hour hour crisis hotline for domestic abuse at Cehryl Luke MD Jan 31, 2017 14:33
--- NOTE | 2017-01-31 16:09 | TR ---
Date Performed: 01/31/2017 Time Performed: 10:30:40 DOCTOR: Karine Diop DRUG LIST: CLINICAL HISTORY: REASON FOR TEST: Chest pain REASON FOR ENDING: OBSERVATION: CONCLUSION: Lexiscan stress test was performed under standard four minute protocol. Radionuclid e was injected one minute prior to ending the test. No electrocardiographic abormalities were present to suggest ischemia. Nuclear imaging and interpretation are pending. COMMENTS:
[2017-02-01] MEDS ORDERED: ASPIRIN 325 MG TAB PO SCH (09:00)
== END 2017-01-31 18:13 | disposition home or self-care (01) ==
LOC: PHEFT 15:46 → PHEDA 18:03 → PH3B 19:14
PROVIDERS: ADMIT Hospitalist; ATTEND Hospitalist
DX: R06.09 Other forms of dyspnea (principal); E11.9 Type 2 diabetes mellitus without complications; Z79.84 Long term (current) use of oral hypoglycemic drugs; I10 Essential (primary) hypertension; K21.9 Gastro-esophageal reflux disease without esophagitis; Z82.49 Family history of ischemic heart disease and other diseases of the circulatory system
CPT/HCPCS: 71020; 78452; 80053; 81001; 82550; 82552; 82948; 83880; 84484; 85025; 85610; 85730; 93005; 93017; 94620; 94664; 94799; 99285; A9502; G0378; J1650; J1815; J2785

== ENCOUNTER 2017-03-26 17:52 | Emergency (ER) | payer OTHER ==
[~2017-03-26] VITALS: Ht 167.6 cm; Wt 93.7 kg
[~2017-03-26 17:52] MED LIST changes: -AMOX500T PO; -MULT-125 PO; -ZOFR4TAB3 SL
[2017-03-26 17:56] VITALS: BP 150/76; PULSE 75; RESP 16; TEMP 98.2; O2SAT 98
--- NOTE | 2017-03-26 18:11 | PD ---
HPI Chief Complaint: Fall Time Seen by Provider: 17:59 Travel History International Travel<30 days: No Contact w/Intl Traveler<30days: No Traveled to known affect area: No History of Present Illness HPI 56-year-old male presents to the emergency department for evaluation for left shoulder pain after he slipped and fell. Patient states he slipped and fell from a roof and approximately approximately 5 feet. He is adamant that he did not hit his head. There is no loss of consciousness. Patient states that he landed on his left shoulder. He denies any midline neck pain. No chest pain or shortness of breath. No abdominal pain. No nausea, vomiting, diarrhea. No hip or pelvic pain. Patient has been ambulatory since the fall. Patient denies any other injury at this time. PFSH Past Medical History Hx Anticoagulant Therapy: Yes (BABY ASA DAILY) Cancer: No Cardiovascular Problems: Yes (Heart Attack) High Cholesterol: Yes Diabetes: Yes Diminished Hearing: No Genitourinary: No Hypertension: Yes Musculoskeletal: No Neurologic: No Reproductive: No Immunizations Current: Yes Myocardial Infarction: Yes ?: Not Past Surgical History Other Surgery: Yes (SINUSX3) Social History Alcohol Use: Yes (OCC) Tobacco Use: No Substance Use: No Allergies-Medications (Allergen,Severity, Reaction): Coded Allergies: No Known Allergies (Unverified , 03/26/17) Reported Meds & Prescriptions Reported Meds & Active Scripts Active Reported Pravastatin 20 Mg Tab 20 Mg PO DAILY Glyburide 1.25 Mg Tab 1.25 Mg PO DAILY Take with meals at the same time each day Invokana (Canagliflozin) 100 Mg Tab 200 Mg PO DAILY Take before 1st meal of day. Aspirin 81 Mg Chew 81 Mg CHEW DAILY Prevacid (Lansoprazole) 15 Mg Capdr 15 Mg PO DAILY Lisinopril-Hctz 10-12.5 Mg Tab 1 Tab PO DAILY Review of Systems Except as stated in HPI: all other systems reviewed are Neg Physical Exam Narrative GENERAL: Well-nourished, well-developed male patient, afebrile. SKIN: Focused skin assessment warm/dry. HEAD: Normocephalic. Atraumatic. EYES: No scleral icterus. No injection or drainage. NECK: Supple, trachea midline. No JVD or lymphadenopathy. CARDIOVASCULAR: Regular rate and rhythm without murmurs, gallops, or rubs. RESPIRATORY: Breath sounds equal bilaterally. No accessory muscle use. Lungs sounds are clear to auscultation GASTROINTESTINAL: Abdomen soft, non-tender, nondistended. MUSCULOSKELETAL: No cyanosis, or edema. Patient has tenderness over left shoulder with worsening pain with flexion. He has a normal grasp strength in the left hand. He has full sensation to the distal left upper extremity BACK: Nontender without obvious deformity. No CVA tenderness. No midline cervical spine tenderness. Full range of motion of cervical spine without pain or stiffness. Mild tenderness to palpation midline thoracic spine. Data Data Last Documented VS Vital Signs Date Time Temp Pulse Resp B/P (MAP) Pulse Ox O2 Delivery O2 Flow Rate FiO2 03/26/17 19:00 73 16 96 03/26/17 19:00 142/73 (96) Room Air 03/26/17 17:56 98.2 Orders Orders Shoulder, Complete (>2vws) (03/26/17 ) Spine, Thoracic-Ap/Lat/Sw(3vw) (03/26/17 ) [facility] Medical Decision Making Medical Screen Exam Complete: Yes Emergency Medical Condition: Yes Medical Record Reviewed: Yes Interpretation(s) x-ray thoracic spine CONCLUSION: 1. No acute compression fracture or subluxation of the thoracic spine. 2. Degenerative changes throughout the thoracic and cervical spines. x-ray left shoulder - CONCLUSION: 1. No acute fracture or dislocation. 2. Mild degenerative changes involving the left acromioclavicular and glenohumeral joints. Differential Diagnosis Contusion versus fracture versus dislocation Narrative Course 56-year-old male presents to the emergency department for evaluation of left shoulder pain after a slip and fall. He denies any other injury. On exam, he also has some tenderness to palpation of the midline thoracic spine. X-ray of the thoracic spine and left shoulder ordered and pending. Patient declines pain medication at this time. X-ray of the left shoulder shows no acute fracture or dislocation. X-ray of the thoracic spine shows degenerative changes without acute compression fracture or subluxation. I discussed the imaging results with the patient. He declined sling at this time. Patient will be discharged with a prescription for ibuprofen and Robaxin. He is encouraged to follow up with his primary care physician. He is return here for any acute worsening of symptoms. Patient verbalizes agreement and understanding. The patient was discharged in stable condition with instructions, including return instructions and follow up instructions. Diagnosis Primary Impression: Contusion of left shoulder Qualified Codes: S40.012A - Contusion of left shoulder, initial encounter Additional Impression: Thoracic back pain Qualified Codes: M54.6 - Pain in thoracic spine Referrals: Primary Care Physician call for appointment Patient Instructions: Back Pain (ED), General Instructions, Shoulder Pain (ED) Additional Instructions: ice for 20 minutes 4-5 times daily. Take ibuprofen as directed as needed with food for pain. Take Robaxin as directed as needed. Follow-up with your primary care physician. Return to the emergency department for any acute worsening of symptoms. Med/Other Pt SpecificInfo: Prescription(s) given Scripts Methocarbamol (Robaxin) 750 Mg Tab 750 MG PO TID Y for MUSCLE SPASM, #21 TAB 0 Refills Prov: Bonnie Davalos 03/26/17 Ibuprofen (Ibuprofen) 600 Mg Tab 600 MG PO TID Y for PAIN SCALE 1 TO 10, #21 TAB 0 Refills Prov: Bonnie Davalos 03/26/17 Disposition: 01 DISCHARGE HOME Condition: Stable Bonnie Davalos Mar 26, 2017 18:11
[2017-03-26] MEDS ORDERED: PRAV20TA2 PO (18:21)
[2017-03-26] MEDS ORDERED: GLYB1.253 PO (18:21)
[2017-03-26 19:00] VITALS: BP 142/73; PULSE 73; RESP 16; O2SAT 96
--- NOTE | 2017-03-26 19:47 | RADRPT ---
EXAM DATE/TIME: 03/26/2017 18:32 [facility] COMPARISON: No previous studies available for comparison. INDICATIONS : Left shoulder pain after patient fell off a roof today MEDICAL HISTORY : None. SURGICAL HISTORY : None. ENCOUNTER: Initial ACUITY: 1 day PAIN SCORE: 7/10 LOCATION: Left posterior shoulder FINDINGS: Mild degenerative changes are noted involving the left acromioclavicular and glenohumeral joints. The re is no acute fracture or dislocation. CONCLUSION: 1. No acute fracture or dislocation. 2. Mild degenerative changes involving the left acromioclavicular and glenohumeral joints. Bradley Guadalupe MD on March 26, 2017 at 19:43 Board Certified Radiologist. This report was verified electronically.
--- NOTE | 2017-03-26 19:55 | RADRPT ---
EXAM DATE/TIME: 03/26/2017 18:41 [facility] COMPARISON: No previous studies available for comparison. INDICATIONS : Back pain after patient fell off of a roof today MEDICAL HISTORY : None. SURGICAL HISTORY : None. ENCOUNTER: Initial ACUITY: 1 day PAIN SCORE: 5/10 LOCATION: Thoracic spine FINDINGS: Degenerative changes are noted throughout the thoracic spine and visualized portion of the cervical s pine. There is no acute compression fracture or subluxation of the thoracic spine. CONCLUSION: 1. No acute compression fracture or subluxation of the thoracic spine. 2. Degenerative changes throughout the thoracic and cervical spines. Bradley Guadalupe MD on March 26, 2017 at 19:50 Board Certified Radiologist. This report was verified electronically.
[2017-03-26] MEDS ORDERED: IBUP-232 PO (20:03)
[2017-03-26] MEDS ORDERED: ROBA750T PO (20:03)
[2017-03-26 20:10] VITALS: BP 131/71
== END 2017-03-26 20:14 | disposition home or self-care (01) ==
LOC: PHED 17:52
DX: S40.012A Contusion of left shoulder, initial encounter (principal); M54.6 Pain in thoracic spine; W13.2XXA Fall from, out of or through roof, initial encounter
CPT/HCPCS: 72072; 73030; 99283

== ENCOUNTER 2017-09-11 14:43 | Emergency (ER) | payer OTHER ==
[~2017-09-11] VITALS: Ht 167.6 cm; Wt 92.4 kg
[~2017-09-11 14:43] MED LIST changes: +ASPI-516 CHEW; -ASPI81CH CHEW; +GLYB1.253 PO; +IBUP-232 PO; -MECL-62 PO; +PRAV20TA2 PO; -PREV15CA15 PO; +PREV15CA20 PO; +ROBA750T PO
[2017-09-11 15:03] VITALS: BP 139/63; PULSE 63; RESP 16; TEMP 98.2; O2SAT 97
[2017-09-11] MEDS ORDERED: GLIP5TAB8 PO (15:18)
[2017-09-11] MEDS ORDERED: CANA1TAB2 PO (15:18)
--- NOTE | 2017-09-11 15:27 | PD ---
HPI Chief Complaint: Diabetic Time Seen by Provider: 15:08 Travel History International Travel<30 days: No Contact w/Intl Traveler<30days: No Traveled to known affect area: No History of Present Illness HPI This 57-year-old male is complaining of high blood sugar. He has a history of diabetes since 1994. He is currently on glipizide 5 mg twice a day and Invokana twice daily. This regimen was only started yesterday when he saw his doctor in follow-up. He has been on antibiotics for several weeks because of some fluid in his ears. Not aware of any complications of his diabetes PFSH Past Medical History Hx Anticoagulant Therapy: Yes (asa 81mg) Cancer: No Cardiovascular Problems: Yes (htn on med) High Cholesterol: Yes Diabetes: Yes (type 2) Patient Takes Glucophage: Yes Diminished Hearing: No GERD: Yes Genitourinary: No Hypertension: Yes Musculoskeletal: No Neurologic: No Reproductive: No Immunizations Current: Yes Myocardial Infarction: Yes ?: Not Past Surgical History Other Surgery: Yes (SINUSX3) Social History Alcohol Use: Yes (OCC) Tobacco Use: No Substance Use: No Allergies-Medications (Allergen,Severity, Reaction): Coded Allergies: No Known Allergies (Unverified Adverse Reaction, Unknown, 09/11/17) Reported Meds & Prescriptions Reported Meds & Active Scripts Active Reported Invokamet (Canagliflozin-Metformin) 50-1,000 Mg Tab 1 Tab PO BID Take with meals. Avoid ethanol. Glipizide 5 Mg Tab 5 Mg PO BIDAC Take 30 minutes before a meal Pravastatin 20 Mg Tab 20 Mg PO DAILY Aspirin 81 Mg Chew 81 Mg CHEW DAILY Prevacid (Lansoprazole) 15 Mg Capdr 15 Mg PO DAILY Lisinopril-Hctz 10-12.5 Mg Tab 1 Tab PO DAILY Review of Systems General / Constitutional: No: Fever, Chills Eyes: No: Diploplia, Blurred Vision HENT: No: Headaches Cardiovascular: No: Chest Pain or Discomfort, Palpitations Respiratory: No: Cough, Shortness of Breath Gastrointestinal: No: Nausea, Vomiting Genitourinary: Positive: Frequency, No: Urgency Musculoskeletal: No: Myalgias, Arthralgias Skin: No Rash Neurologic: No: Weakness, Dizziness Hematologic/Lymphatic: No: Easy Bruising Physical Exam Narrative GENERAL: Well-developed male SKIN: Focused skin assessment warm/dry. HEAD: Atraumatic. Normocephalic. EYES: Pupils equal and round. No scleral icterus. No injection or drainage. ENT: No nasal bleeding or discharge. Mucous membranes pink and moist. NECK: Trachea midline. No JVD. CARDIOVASCULAR: Regular rate and rhythm. No murmur appreciated. RESPIRATORY: No accessory muscle use. Clear to auscultation. Breath sounds equal bilaterally. GASTROINTESTINAL: Abdomen soft, non-tender, nondistended. Hepatic and splenic margins not palpable. MUSCULOSKELETAL: No obvious deformities. No clubbing. No cyanosis. No edema. NEUROLOGICAL: Awake and alert. No obvious cranial nerve deficits. Motor grossly within normal limits. Normal speech. PSYCHIATRIC: Appropriate mood and affect; insight and judgment normal. Data Data Last Documented VS Vital Signs Date Time Temp Pulse Resp B/P (MAP) Pulse Ox O2 Delivery O2 Flow Rate FiO2 09/11/17 15:03 98.2 63 16 139/63 (88) 97 Orders Orders Complete Blood Count With Diff (09/11/17 15:17) Basic Metabolic Panel (Bmp) (09/11/17 15:17) Beta Hydroxybutyrate (Acetone) (09/11/17 15:17) Sodium Chlor 0.9% 1000 Ml Inj (Ns 1000 M (09/11/17 15:30) Insulin Human Regular Inj (Novolin R Inj (09/11/17 15:30) Labs Laboratory Tests Test 09/11/17 15:35 White Blood Count 10.3 TH/MM3 Red Blood Count 4.94 MIL/MM3 Hemoglobin 15.1 GM/DL Hematocrit 45.6 % Mean Corpuscular Volume 92.3 FL Mean Corpuscular Hemoglobin 30.5 PG Mean Corpuscular Hemoglobin Concent 33.0 % Red Cell Distribution Width 12.7 % Platelet Count 184 TH/MM3 Mean Platelet Volume 9.6 FL Neutrophils (%) (Auto) 77.5 % Lymphocytes (%) (Auto) 13.2 % Monocytes (%) (Auto) 7.0 % Eosinophils (%) (Auto) 1.8 % Basophils (%) (Auto) 0.5 % Neutrophils # (Auto) 7.9 TH/MM3 Lymphocytes # (Auto) 1.4 TH/MM3 Monocytes # (Auto) 0.7 TH/MM3 Eosinophils # (Auto) 0.2 TH/MM3 Basophils # (Auto) 0.1 TH/MM3 CBC Comment DIFF FINAL Differential Comment Blood Urea Nitrogen 25 MG/DL Random Glucose 375 MG/DL Calcium Level 9.2 MG/DL Sodium Level 133 MEQ/L Potassium Level 3.9 MEQ/L Chloride Level 96 MEQ/L Carbon Dioxide Level 25.4 MEQ/L Anion Gap 12 MEQ/L [facility] Medical Decision Making Medical Screen Exam Complete: Yes Emergency Medical Condition: Yes Medical Record Reviewed: Yes Differential Diagnosis Differential includes uncontrolled diabetes, DKA Narrative Course Blood sugar now is 375. BUN is 25. Patient has been given IV fluids and some insulin. His regimen was only changed yesterday so it is too early to tell if it will be effective. He should continue his medications as directed Diagnosis Primary Impression: Hyperglycemia Disposition: 01 DISCHARGE HOME Condition: Stable Tu Bowers MD Sep 11, 2017 15:27
[2017-09-11] MEDS ORDERED: SODIUM CHLOR 0.9% 1000 ML INJ 1,000 ML IV ONE (15:30)
[2017-09-11] MEDS ORDERED: INSULIN HUMAN REGULAR 1,000 UNITS/10 ML VIAL SQ ONE (15:30)
[2017-09-11 15:46] LABS: AUTOMATED NEUTROPHIL # 7.9 TH/MM3 (1.8-7.7); BASOPHIL # 0.1 TH/MM3 (0-0.2); BASOPHIL % 0.5 % (0.0-2.0); EOSINOPHIL # 0.2 TH/MM3 (0-0.4); EOSINOPHIL % 1.8 % (0.0-4.0); HEMATOCRIT 45.6 % (39.0-51.0); HEMOGLOBIN 15.1 GM/DL (13.0-17.0); LYMPH % 13.2 % (9.0-44.0); LYMPHOCYTE # 1.4 TH/MM3 (1.0-4.8); MEAN CELL VOLUME 92.3 FL (80.0-100.0); MEAN CORPUSCULAR HEMOGLOBIN 30.5 PG (27.0-34.0); MEAN PLATELET VOLUME 9.6 FL (7.0-11.0); MONOCYTE # 0.7 TH/MM3 (0-0.9); NEUT % 77.5 % (16.0-70.0); PLATELET COUNT 184 TH/MM3 (150-450); RED BLOOD COUNT 4.94 MIL/MM3 (4.50-5.90); RED CELL DISTRIBUTION WIDTH 12.7 % (11.6-17.2); WHITE BLOOD COUNT 10.3 TH/MM3 (4.0-11.0)
[2017-09-11 15:57] LABS: BICARBONATE 25.4 MEQ/L (21.0-32.0); CALCIUM 9.2 MG/DL (8.5-10.1)
[2017-09-11 16:01] LABS: CREATININE 1.1 MG/DL (0.60-1.30)
== END 2017-09-11 16:56 | disposition home or self-care (01) ==
LOC: PHED 14:43
DX: E11.65 Type 2 diabetes mellitus with hyperglycemia (principal); I10 Essential (primary) hypertension; E78.00 Pure hypercholesterolemia, unspecified; K21.9 Gastro-esophageal reflux disease without esophagitis; Z79.84 Long term (current) use of oral hypoglycemic drugs; Z79.899 Other long term (current) drug therapy
CPT/HCPCS: 80048; 82010; 85025; 96372; 99284; J1815; J7030

== ENCOUNTER 2017-11-18 14:53 | Emergency (ER) | payer MEDICAID, OTHER ==
[~2017-11-18 14:53] MED LIST changes: -CANA100T PO; +CANA1TAB2 PO; +GLIP5TAB8 PO; -GLYB1.253 PO; -IBUP-232 PO; -ROBA750T PO
[2017-11-18 15:31] VITALS: BP 118/65; PULSE 92; RESP 16; TEMP 98.7; O2SAT 96
[2017-11-18] MEDS ORDERED: LIDO1PAD52 TOPICAL (15:56)
[2017-11-18] MEDS ORDERED: ROBA500T PO (15:56)
[2017-11-18] MEDS ORDERED: IBUP1TAB7 PO (15:56)
--- NOTE | 2017-11-18 15:59 | PD ---
HPI Chief Complaint: Injury Time Seen by Provider: 15:46 Travel History International Travel<30 days: No Contact w/Intl Traveler<30days: No Traveled to known affect area: No History of Present Illness HPI 57-year-old male with a history of diabetes mellitus presents emergency department for evaluation of acute on chronic left shoulder pain that started 1 year ago. Patient states over the last 3 days he has had increased pain described as constant, aching. Says he has decreased range of motion of the shoulder although states this is chronic. Denies inciting events or trauma. His pain is mild to moderate in severity. Denies numbness or tingling. Says that he was previously evaluated by Dr. Washburn, orthopedist, and was told that he has a "complete tear" of his rotator cuff. Says that he last had imaging 3 weeks ago and followed up with Dr. Washburn who recommended surgery. Says that his insurance change and so the surgery had to be canceled. He is looking for an dispute specialist and primary care physician for treatment. PFSH Past Medical History Hx Anticoagulant Therapy: Yes (asa 81mg) Cancer: No Cardiovascular Problems: Yes (htn on med) High Cholesterol: Yes Diabetes: Yes Patient Takes Glucophage: No Diminished Hearing: No GERD: Yes Genitourinary: No Hypertension: Yes Musculoskeletal: No Neurologic: No Reproductive: No Immunizations Current: Yes Myocardial Infarction: Yes Past Surgical History Other Surgery: Yes (SINUSX3) Social History Alcohol Use: Yes (RARELY) Tobacco Use: No Substance Use: No Allergies-Medications (Allergen,Severity, Reaction): Coded Allergies: No Known Allergies (Verified Adverse Reaction, Unknown, 11/18/17) Reported Meds & Prescriptions Reported Meds & Active Scripts Active Lidocaine Patch 12 HR (Lidocaine) 5 % Patch 1 Patch TOPICAL DAILY Remove patch after 12 hours Ibuprofen 800 Mg Tab 800 Mg PO Q8H PRN 5 Days Robaxin (Methocarbamol) 500 Mg Tab 500 Mg PO TID 5 Days Reported Invokamet (Canagliflozin-Metformin) 50-1,000 Mg Tab 1 Tab PO BID Take with meals. Avoid ethanol. Glipizide 5 Mg Tab 5 Mg PO BIDAC Take 30 minutes before a meal Pravastatin 20 Mg Tab 20 Mg PO DAILY Aspirin 81 Mg Chew 81 Mg CHEW DAILY Prevacid (Lansoprazole) 15 Mg Capdr 15 Mg PO DAILY Lisinopril-Hctz 10-12.5 Mg Tab 1 Tab PO DAILY Review of Systems Except as stated in HPI: all other systems reviewed are Neg Physical Exam Narrative GENERAL: Well-nourished, well-developed patient. SKIN: Focused skin assessment warm/dry. HEAD: Normocephalic. EYES: No scleral icterus. No injection or drainage. NECK: Supple, trachea midline. No JVD or lymphadenopathy. No tenderness palpation of the midline or paraspinous muscles CARDIOVASCULAR: Regular rate and rhythm without murmurs, gallops, or rubs. RESPIRATORY: Breath sounds equal bilaterally. No accessory muscle use. Left shoulder-tenderness palpation to the musculature of the shoulder girdle, obvious muscle spasms present. Neurovascular intact. Internal rotation and adduction nearly normal range of motion, abduction at 90 . MUSCULOSKELETAL: No cyanosis, or edema. BACK: Nontender without obvious deformity. No CVA tenderness. Data Data Last Documented VS Vital Signs Date Time Temp Pulse Resp B/P (MAP) Pulse Ox O2 Delivery O2 Flow Rate FiO2 11/18/17 15:31 98.7 92 16 118/65 (82) 96 Orders Orders Ed Discharge Order (11/18/17 16:03) MDM Medical Decision Making Medical Screen Exam Complete: Yes Emergency Medical Condition: Yes Differential Diagnosis Left shoulder muscle spasms, rotator cuff injury, shoulder sprain Narrative Course 57-year-old male presents emergency department for evaluation of acute on chronic left shoulder pain that is worsened over the last 3 days. Patient is evaluated by or so and primary care however his insurance changed and now he is having difficulty obtaining further treatment. His exam findings most consistent with rotator cuff injury with accompanying muscle spasms of the shoulder girdle. Patient should follow-up with dispute specialist for further evaluation. Lidocaine patch, ibuprofen, Robaxin outpatient use. Give the names of multiple dispute specialist for future evaluation. He should follow-up with his primary care physician for further treatment and evaluation as well. Diagnosis Primary Impression: Left shoulder pain Qualified Codes: M25.512 - Pain in left shoulder; G89.29 - Other chronic pain Referrals: Geena Alves MD,Maynor Oakes,Jose M Cabrera MD Orthopedist Additional Instructions: Use ice or heat for symptom relief. You may use lidocaine patches for 12 hours at a time. Apply the patch 12 hours and leave on for 12 hours. Do not use more than the recommended dose. Ensure adequate fluid intake and proper nutrition. Elevate the joint above the heart to reduce swelling. You may use compression with Reji wrap or similar to reduce swelling. If symptoms persist or worsen, return to the emergency department. Follow up with your primary care physician within 2 days. Scripts Lidocaine Patch 12 HR (Lidocaine Patch 12 HR) 5 % Patch 1 PATCH TOPICAL DAILY for Pain Management, #1 BOX 0 Refills Remove patch after 12 hours Prov: Tu Bowers MD 11/18/17 Ibuprofen (Ibuprofen) 800 Mg Tab 800 MG PO Q8H Y for Pain/Inflammation for 5 Days, #15 TAB 0 Refills Prov: Tu Bowers MD 11/18/17 Methocarbamol (Robaxin) 500 Mg Tab 500 MG PO TID for Muscle Spasm for 5 Days, TAB 0 Refills Prov: Tu Bowers MD 11/18/17 Disposition: 01 DISCHARGE HOME Condition: Stable Dimple Reece November 18, 2017 15:59
== END 2017-11-18 16:32 | disposition home or self-care (01) ==
LOC: PHEFT 14:53
DX: M25.512 Pain in left shoulder (principal); G89.29 Other chronic pain; E11.9 Type 2 diabetes mellitus without complications; E78.00 Pure hypercholesterolemia, unspecified; I10 Essential (primary) hypertension; K21.9 Gastro-esophageal reflux disease without esophagitis; I25.2 Old myocardial infarction
CPT/HCPCS: 99283

== ENCOUNTER → 2017-12-24 | Day surgery (SDC) | payer MEDICAID, OTHER ==
[~2017-12-24] MED LIST changes: +BUPIVACAINE HCL PF 0.75% 30 ML VIAL ONE; +IBUP1TAB7 PO; +LACTATED RINGER'S 1000 ML INJ 1,000 ML ONE; +LIDO1PAD52 TOPICAL; +LIDOCAINE 1.5%/EPINEPHrine 1:200,000 PF SOLN 30 ML AMP ONE; +MIDAZOLAM HCL 5 MG/5 ML VIAL ONE; +PROPOFOL 500 MG/50 ML BTL IV ONE; +RESP: ALBUTEROL 2.5 MG/3 ML NEB (SCH) ONE; +ROBA500T PO; +ceFAZolin 2 GM PREMIX 50 ML ONE
--- NOTE | 2017-12-24 15:14 | MP ---
cc: Maynor Ortiz MD DATE OF OPERATION: 12/24/2017 PREOPERATIVE DIAGNOSIS: Left shoulder rotator cuff tendon tear, left shoulder impingement syndrome, left shoulder labral tear. POSTOPERATIVE DIAGNOSIS: Left shoulder rotator cuff tendon tear, left shoulder impingement syndrome, left shoulder labral tear. PROCEDURE PERFORMED: Left shoulder arthroscopic rotator cuff repair, left shoulder arthroscopic subacromial decompression, left shoulder arthroscopic extensive debridement of labral tear. SURGEON: Maynor Ortiz MD 1ST GRADE TEACHER: Chris Mota PA-C. ANESTHESIA: General with an anterior scalene block. ESTIMATED BLOOD LOSS: Less than 50 mL COMPLICATIONS: None. IMPLANTS USED: Arthrex. JUSTIFICATION: The patient is a 57-year-old male who sustained injury to the left shoulder resulting in pain, weakness in regards to his condition. He has failed conservative treatment. Clinical exam as well as MRI confirmed the above named findings. The patient was counseled on risks, benefits, and alternatives to the above-named proposed surgical procedure. He did wish to proceed with surgery. PROCEDURE IN DETAIL: Written consent was obtained. The patient was identified by name, taken to the operating room and placed supine on the operative table. General anesthesia was administered, as well as 2 grams of IV Ancef. The patient was carefully turned to the right lateral decubitus position. A lateral arm roll was placed. All bony prominences and pressure points were well-padded. Arthroscopic arm hinojosa was then applied to the left upper extremity. Ten pounds of traction was placed. Left shoulder prepped and draped using isopropyl alcohol, Hibiclens solution and DuraPrep solution. A timeout was performed. A standard posterior and anterior glenohumeral arthroscopic portal was established. The glenohumeral joint revealed evidence of extensive labral tearing on the anterior, superior and posterior portions. An arthroscopic shaver was introduced from the anterior portal and extensive debridement of labrum was performed to include the anterior 3 o'clock position up to the superior 12 o'clock position, back down to the posterior 9 o'clock position. There was evidence of massive rotator cuff tendon tear which was also debrided from within the joint. Attention was turned to the subacromial space. There was evidence of significant impingement with bursitis. Arthroscopic shaver was introduced from the lateral portal, a subacromial decompression was performed. The shaver was used to perform extensive bursectomy. The arthroscopic bur was used to perform an acromioplasty and the cautery device was used to release the coracoacromial ligament. There was evidence of massive rotator cuff tear involving the entire supraspinatus and infraspinatus tendon with significant retraction. A bur was used to decorticate the greater tuberosity in preparation for rotator cuff tendon repair. At this point, an Arthrex expansion bridge repair was performed. Three medial row 4.75 mm Bio-SwiveLock anchors were inserted. The Arthrex Scorpion device was used to shuttle #2 FiberTape suture through the posterior mid and anterior portion of the tendon. The tendon had significant edematous change with delamination and also calcification of tendon. It was very difficult to pass the suture, which required multiple suture passage attempts and multiple Scorpion needles in order to successfully pass all suture needed for repair. Subsequently, 3 lateral row anchors were placed after appropriate tensioning of sutures. At the conclusion of the repair, this was probed and noted good stability and fixation. All anchors had good purchase. The incisions were closed with 3-0 Prolene suture. Sterile dressing applied. The patient was placed in a sling and swathe immobilizer. He tolerated the procedure well with no intraoperative complications noted. Chris Mota PA-C was present during the entire procedure to include patient position, the procedure itself. The medical necessity of physician wardrobe assistant was indicated in this case due to the complexity of the procedure. He assisted with appropriate manipulation of the arm and manipulation of the camera. He assisted with shuttling of sutures, also implantation of suture anchors for purposes of rotator cuff tendon repair. MD MARIKA Newman/JAY , 02:48 PM , 03:12 PM
== END | disposition home or self-care (01) ==
LOC: ESDC 11:10
PROVIDERS: ATTEND Orthopaedic Surgery Sports Medicine
DX: M75.102 Unspecified rotator cuff tear or rupture of left shoulder, not specified as traumatic (principal); M75.42 Impingement syndrome of left shoulder; S43.432A Superior glenoid labrum lesion of left shoulder, initial encounter; E11.9 Type 2 diabetes mellitus without complications; Z79.84 Long term (current) use of oral hypoglycemic drugs
CPT/HCPCS: 01630; 01991; 29823; 29826; 29827; 64417; 82948; C1713; J0690; J2250; J3010; J7120; J7613